=== PATIENT | male | born 1950 | race Caucasian/White ===

== ENCOUNTER → 2019-08-31 | Day surgery (SDC) | payer MEDICARE, OTHER ==
[~2019-08-31] MED LIST: Lactated Ringers 1,000 ML IV SCH; Propofol 200 MG/20 ML SDV IV ONE
--- NOTE | 2019-08-31 13:10 | OR ---
DATE OF OPERATION: 08/31/2019 PREOPERATIVE DIAGNOSIS: HISTORY OF POLYPS. POSTOPERATIVE DIAGNOSIS: HISTORY OF POLYPS. SURGEON: Chris Eric MD PROCEDURE: FULL-LENGTH COLONOSCOPY WITH SNARE POLYPECTOMY X1. ANESTHESIA: MAC. COMPLICATIONS: None. SPECIMEN: Tubular adenoma, rectal vault, 0.5 cm. FINDINGS: 1. Full-length colonoscopy. 2. Hqzh-[id number] sigmoid diverticulosis. 3. Tubular adenoma, rectal vault. RECOMMENDATIONS: Followup colonoscopy in 5 years. INDICATIONS: The patient was sent for a surveillance scope as he had polyps removed approximately 5 years ago. DESCRIPTION OF PROCEDURE: The patient was prepped and draped, placed in the left lateral decubitus position. A lubricated Olympus colonoscope was inserted and easily advanced to the cecum. Direct visualization of the ileocecal valve and appendiceal orifice was accomplished. The bowel prep was excellent. Cecal pouch looked benign, briefly intubated into the terminal ileum, also unremarkable. The entire right transverse and descending colons were unremarkable. The patient does have scattered diverticula in the sigmoid area, [id number] in severity. No inflammatory changes seen. There were no polyps, masses, ulceration, bleeding sites, or vascular abnormality in the sigmoid or rectosigmoid junction. The rectal vault had 1 small tubular adenoma, approximately 4 to 5 mm, stalked easily, removed with a snare and suctioned into polyp trap #1. Retroflexion showed no perianal lesions. Air was suctioned, scope removed without complication. ASHLEE/KULWANT /[id number]
== END ==
LOC: CC.SDS 09:43
PROVIDERS: ATTEND Family Medicine
DX: Z12.11 Encounter for screening for malignant neoplasm of colon (principal); D12.8 Benign neoplasm of rectum; K57.30 Diverticulosis of large intestine without perforation or abscess without bleeding; I10 Essential (primary) hypertension; N40.1 Benign prostatic hyperplasia with lower urinary tract symptoms; R35.1 Nocturia; Z86.010 Personal history of colon polyps; Z98.890 Other specified postprocedural states; Z79.899 Other long term (current) drug therapy
CPT/HCPCS: 45385; 88305; J2704; J7120

== ENCOUNTER → 2024-10-12 | Day surgery (SDC) | payer MEDICARE ==
[~2024-10-12] MED LIST changes: +Flumazenil 0.1 MG/ML 5 ML MDV ONE; +Ketamine 200 MG/20 ML MDV ONE; -Lactated Ringers 1,000 ML IV SCH; +Midazolam 1 MG/ML 2 ML SDV ONE; -Propofol 200 MG/20 ML SDV IV ONE; +Propofol 200 MG/20 ML SDV ONE; +fentaNYL 50 MCG/ML SDV ONE
[2024-10-12] MEDS: Lactated Ringers 1,000 ML IV SCH (08:32)
== END ==
LOC: CC.SDS 08:08
PROVIDERS: ATTEND Family Medicine
DX: Z12.11 Encounter for screening for malignant neoplasm of colon (principal); D12.3 Benign neoplasm of transverse colon; K57.90 Diverticulosis of intestine, part unspecified, without perforation or abscess without bleeding; I10 Essential (primary) hypertension; Z86.0100 Personal history of colon polyps, unspecified; Z79.899 Other long term (current) drug therapy
CPT/HCPCS: 00811; 88305; 99100; J2250; J2704; J3010; J3490; J7120